=== PATIENT | male | born 1940 | race Caucasian/White ===

== ENCOUNTER → 2016-07-29 | Outpatient (CLI) | payer OTHER ==
[~2016-07-29] MED LIST: LETS SOLN TOPICAL 1 EA SYR TP ONE
--- NOTE | 2016-07-29 10:23 | DX ---
Left knee 5 views HISTORY: Left knee pain after twisting trauma. M [id number]. FINDINGS: No fracture or dislocation. No convincing evidence of joint effusion. Osteophytes extend ce phalad into the quadriceps tendon from the upper pole of the patella. IMPRESSION: Essentially negative.
== END ==
LOC: CIMAGING 09:22
PROVIDERS: ATTEND Family Medicine
DX: M25.562 Pain in left knee (principal)
CPT/HCPCS: 73564-PO

== ENCOUNTER 2017-01-05 11:31 | Emergency (ER) | payer OTHER ==
[2017-01-05 11:48] VITALS: TEMP 98
[2017-01-05] MEDS ORDERED: LET GEL TOPICAL 1 EA SYR TP ONE (11:54)
[2017-01-05] MEDS ORDERED: TDAP ADULT 0.5 ML INJ (BOOSTRIX) IM ONE (11:55)
--- NOTE | 2017-01-05 12:22 | EDPHY ---
H & P Stated Complaint: tripped over rug on deck hitting Rt FH/Rt elbow/arm Time Seen by Provider: 01/05/17 12:10 HPI/ROS: Chief Complaint: Fall, forehead laceration HPI: 76-year-old male tripped and fell on a rug on his desk at about 10 30 this morning, striking his head on a large rock. He sustained a laceration over his right eyebrow. He did not have a loss of consciousness. Denies headache at this time. He is not on any anticoagulant medications. Has some mild tenderness over his right elbow otherwise without complaint. No neck pain. No numbness or tingling. Does not recall his last tetanus shot. ROS: 10 point Review of Systems is negative except as noted in the HPI. PMH: Hypertension Medications: Blood pressure medication, he does not recall the name Allergies: No known drug allergies Social History: No smoking, no alcohol, no recreational drug use Family History: non-contributory Physical Exam: Gen: Awake, Alert, No Distress HEENT: He is a 2 cm laceration over his right eyebrow which is gaping. No bony tenderness or step-offs. Mild abrasion to the bridge of his nose. No tenderness or deformity. Nose: no rhinorrhea Eyes: PERRLA, EOMI Mouth: Moist mucosa Neck: Supple, no JVD Chest: nontender, lungs clear to auscultation Heart: S1, S2 normal, no murmur Abd: Soft, non-tender, no guarding Back: no CVA tenderness, no midline tenderness Ext: no edema, non-tender, full range of motion without pain Skin: no rash Neuro: CN II-XII intact, Sensation grossly intact, Strength 5/5 in bilateral upper and lower extremities - Personal History Current Tetanus Diphtheria and Acellular Pertussis (TDAP): No - Medical/Surgical History Other PMH: HTN. Sleep apnea. ortho surg to rig ankle - Social History Smoking Status: Never smoked Constitutional: Initial Vital Signs Temperature (C) 36.6 C 01/05/17 11:45 Heart Rate 78 01/05/17 11:45 Respiratory Rate 18 01/05/17 11:45 Blood Pressure 153/100 H 01/05/17 11:45 O2 Sat (%) 93 01/05/17 11:45 O2 Delivery Mode Room Air Allergies/Adverse Reactions: No Known Allergies Allergy (Verified 10/28/14 18:24) Home Medications: Medication Instructions Recorded Amlodipine Besylate 10/28/14 Medical Decision Making Procedures: Procedure: Laceration repair. Verbal consent was obtained from the patient. The 2 cm laceration on the right forehead was anesthetized in the usual fashion. The wound was irrigated, draped and explored to its base with a gloved finger. There were no deep structures involved. No tendon injury was identified. The wound was repaired with layered closure, deep layer 3 5-0 Vicryl horizontal mattress sutures, skin where 5, 6-0 Ethilon simple interrupted sutures. The wound repair was complex. The procedure was performed by myself. ED Course/Re-evaluation: 76-year-old male status post fall with forehead laceration. He had no loss of consciousness. Has no neurologic complaints at this time. Does not have headache. Not on anticoagulation. He will go home with head injury instructions. His son will be able to look after him. Will return for any worsening symptoms or concerns. - Data Points Medications Given: Discontinued Medications Diphtheria/Tetanus/Acell Pertussis (Boostrix) 0.5 ml IM .ONCE ONE Stop: 01/05/17 11:56 Last Admin: 01/05/17 12:09 Dose: 0.5 ml Tetracaine/Epinephrine/Lidocaine (Let Gel Topical) 1 ea TP EDNOW ONE Stop: 01/05/17 11:55 Last Admin: 01/05/17 12:03 Dose: 1 ea Departure - Departure Disposition: Home, Routine, Self-Care Clinical Impression: Forehead laceration Condition: Good Instructions: Diphtheria/Acellular Pertussis/Tetanus Vaccine (By injection), Care For Your Stitches (ED), Facial Laceration (ED), Head Injury (ED) Additional Instructions: Stitches need to be removed in 5 days, follow up with primary care physician for this. Return emergency depart for increasing headache, nausea, vomiting, neck pain, numbness, weakness, redness from the wound, discharge from the wound, or any other concerns. Referrals: Rich Villar MD [Primary Care Provider] - As per Instructions
[2017-01-05 13:37] VITALS: BP 140/60; PULSE 70; RESP 16
[2017-01-05 13:38] VITALS: O2SAT 92
== END 2017-01-05 13:36 | disposition home or self-care (01) ==
LOC: CED 11:31
PROC: 0HQ1XZZ Repair Face Skin, External Approach (ICD-10-PCS; principal; 2017-01-05)
DX: S01.81XA Laceration without foreign body of other part of head, initial encounter (principal); I10 Essential (primary) hypertension; Z23 Encounter for immunization; W01.198A Fall on same level from slipping, tripping and stumbling with subsequent striking against other object, initial encounter

== ENCOUNTER → 2017-08-09 | Outpatient (CLI) | payer OTHER | LOC: FCPNEURO 23:07 | PROVIDERS: ATTEND Psychiatry & Neurology Sleep Medicine | DX: G47.33 Obstructive sleep apnea (adult) (pediatric) (principal) ==

== ENCOUNTER → 2017-08-12 | Outpatient (CLI) | payer OTHER | LOC: FIMAGING 12:35 | PROVIDERS: ATTEND Psychiatry & Neurology Neurology | DX: R41.89 Other symptoms and signs involving cognitive functions and awareness (principal) ==

== ENCOUNTER → 2018-02-07 | Outpatient (CLI) | payer OTHER | LOC: SUPIMAGING 09:45 | PROVIDERS: ATTEND Nurse Practitioner | DX: M25.522 Pain in left elbow (principal); M79.89 Other specified soft tissue disorders | CPT/HCPCS: 73080-PN ==

== ENCOUNTER 2018-08-03 10:22 | Emergency (ER) | payer OTHER ==
--- NOTE | 2018-08-03 10:56 | EDPHY ---
H & P Stated Complaint: mechanical fall today 829 due to high wind, hit head, denies LOC Time Seen by Provider: 08/03/18 10:29 HPI/ROS: CHIEF COMPLAINT: Head injury, chest pain and leg bruises History by patient HISTORY OF PRESENT ILLNESS: 70-year-old man with history of hypertension on amlodipine and a baby aspirin a day presents complaining of mechanical fall when he slipped on some ice or was blown over by the wind at home this morning just prior to arrival. He did hit his head but did not lose consciousness. He was able to get up on his own. His neighbor helped him a abrasions and his granddaughter brought in and she was concerned about. Denies any nausea or vomiting or focal numbness or weakness. He complains of some pain in the area of his left jarvis where he has abrasions as well as right-sided chest pain. He denies any pleuritic pain or shortness of breath. He denies any neck or back pain. He denies any abdominal pain. He has not taken anything for pain. REVIEW OF SYSTEMS: As in HPI, and all other systems reviewed and are negative Source: Patient - Personal History Current Tetanus Diphtheria and Acellular Pertussis (TDAP): Unsure - Medical/Surgical History Other PMH: HTN. Sleep apnea. ortho surg to right ankle - Social History Smoking Status: Never smoked - Physical Exam Exam: General Appearance: Alert, pleasant, nontoxic-appearing Head: normocephalic, positive 5 cm linear abrasion with surrounding ecchymoses right frontal area Eyes: Pupils equal and round, reactive to light, no pallor or injection. TMs: No hemotympanum Mouth: Mucous membranes moist. Oropharynx clear Neck: No bony tenderness, full range of motion Chest: Positive tenderness right lower ribs, no step-off or crepitus Respiratory: Normal, effort, lungs are clear to auscultation. No wheezes, rales or rhonchi. Cardiovascular: Regular rate and rhythm. S1, S2, no murmurs, gallops or rubs appreciated Gastrointestinal: Abdomen is soft and nontender, no masses, bowel sounds normal. Back: No CVA tenderness, no bony tenderness Neurological: Awake, alert and oriented x 3, cranial nerves 2-12 intact, no pronator drift, normal gait, 5/5 equal strength in lower extremities Skin: Warm and dry, no rashes. Musculoskeletal: No deformities or tenderness. Extremities: full range of motion, no edema, DP2+ bilat Psychiatric: Patient has normal affect, there is no agitation. Constitutional: Initial Vital Signs Temperature (C) 36.6 C 08/03/18 10:34 Heart Rate 72 08/03/18 10:34 Respiratory Rate 18 08/03/18 10:34 Blood Pressure 151/83 H 08/03/18 10:34 O2 Sat (%) 95 08/03/18 10:34 O2 Delivery Mode Room Air Allergies/Adverse Reactions: No Known Allergies Allergy (Verified 08/03/18 10:34) Home Medications: Medication Instructions Recorded Amlodipine Besylate 10/28/14 Medical Decision Making - Diagnostics Imaging Results: Imaging Impressions Head CT 08/03/18 10:52 Impression: 1. Mild atrophy. 2. No acute hemorrhage, hydrocephalus, or mass effect. 3. Mild Cerebrovascular atherosclerosis. 4. No definite acute infarct. 5. Moderate microvascular ischemic gliosis. 6. Mild sinusitis. 7. No epidural or subdural hematoma. Findings and recommendations discussed with Emergency Department physician, Christine Juarez MD at 1122 hour, 08/03/2018. Final report concurs with initial preliminary interpretation. ED Course/Re-evaluation: 70-year-old man presents with head and leg abrasions and rib pain. Because of his age and aspirin use a head CT was obtained to rule out intracranial injury which was read as nothing acute by the radiologist. Chest x-ray showed no evidence of rib fracture or pneumothorax or hemothorax. Patient's last tetanus shot was 2 years ago. There is no evidence of significant traumatic injury. We discussed home care and return precautions with patient and his granddaughter. Departure - Departure Disposition: Home, Routine, Self-Care Clinical Impression: Abrasion head Qualifiers: Encounter type: initial encounter Qualified Code(s): S00.91XA - Abrasion of unspecified part of head, initial encounter Contusion of rib on right side Qualifiers: Encounter type: initial encounter Qualified Code(s): S20.211A - Contusion of right front wall of thorax, initial encounter Lower leg abrasion Qualifiers: Encounter type: initial encounter Laterality: left Qualified Code(s): S80.812A - Abrasion, left lower leg, initial encounter Condition: Good Instructions: Abrasion (ED), Rib Contusion (ED) Additional Instructions: You were seen by Dr. Christine Juarez today. Your head CT showed no evidence of skull or brain injury. Her chest x-ray showed no evidence of rib fracture. You may have a rib contusion. You may take Tylenol or ibuprofen as needed for pain in her ribs or at the site of your abrasions. He may use ice packs on her ribs for pain. Make sure you are taking deep breaths. Return immediately if you have any difficulty breathing, fever cough or pain with breathing. Return for any worsening or new concerns. Referrals: Rich Villar MD [Primary Care Provider] - As per Instructions
[2018-08-03 12:28] VITALS: BP 151/87
== END 2018-08-03 11:50 | disposition home or self-care (01) ==
LOC: CED 10:22
DX: S00.91XA Abrasion of unspecified part of head, initial encounter (principal); S20.211A Contusion of right front wall of thorax, initial encounter; I10 Essential (primary) hypertension; W20.8XXA Other cause of strike by thrown, projected or falling object, initial encounter; X39.8XXA Other exposure to forces of nature, initial encounter
CPT/HCPCS: 70450-PO; 71046-PO; 99284-ER